=== PATIENT | female | born 1960 | race Two or more races ===

== ENCOUNTER 2018-12-31 02:15 | Emergency (ER) | payer MEDICAID ==
[~2018-12-31] VITALS: Ht 160 cm; Wt 57.2 kg
--- NOTE | 2018-12-31 02:20 | NUR ---
Pt. BIB by wheelchair accompanied by daughter for 04/24 R ankle pain - pt. reports twisting her ankle while walking in heels at approx. 5 hours ago,
[2018-12-31] MEDS ORDERED: HYDROCODONE/APAP 5-325MG TABLET PO ONE (02:30)
[2018-12-31] MEDS ORDERED: HYDROCODONE/APAP 5-325MG TABLET ONE (02:38)
--- NOTE | 2018-12-31 02:45 | NUR ---
e d tech. at bedside for imaging of R ankle
--- NOTE | 2018-12-31 03:30 | NUR ---
Patient discharged to home in stable conditon. Written and verbal after care instructions given. Patient verbalizes understanding of instructions. Pt. d/c w/ prescription per MD order, d/c papers signed, all belongings w/ pt., crutches given - gait training done, ID band removed, pt. taken off unit in wheelchair accompanied by daughter, left in private vehicle, instructed not to drive, NAD
== END 2018-12-31 03:31 | disposition home or self-care (01) ==
LOC: ER 02:17
DX: S92.351A Displaced fracture of fifth metatarsal bone, right foot, initial encounter for closed fracture (principal); F17.210 Nicotine dependence, cigarettes, uncomplicated; W18.42XA Slipping, tripping and stumbling without falling due to stepping into hole or opening, initial encounter; Y93.89 Activity, other specified; Y92.89 Other specified places as the place of occurrence of the external cause; Y99.8 Other external cause status
CPT/HCPCS: 73630; A4663